=== PATIENT | female | born 1965 | race Caucasian/White ===

== ENCOUNTER 2016-07-23 07:18 | Day surgery (SDC) | payer BC, MEDICAID, OTHER ==
[~2016-07-23 07:18] MED LIST: Bupivacaine 0.5% 10 ML SDV ONE; Lactated Ringers 1,000 ML IV SCH; Lidocaine 1% 30 ML SDV ONE; Lidocaine 2% 20 ML MDV ONE; Midazolam 1 MG/ML 2 ML SDV ONE; Ondansetron 4 MG/2 ML SDV ONE; Propofol 200 MG/20 ML SDV ONE; Sodium Chloride 0.9% 10 ML Syringe FLUSH PRN; fentaNYL 100 MCG/2 ML SDV ONE
[2016-07-23] MEDS ORDERED: ceFAZolin 1 GM in Premix Bag 1 BAG IV ONE (07:30)
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
[2016-07-23] MEDS ORDERED: fentaNYL 100 MCG/2 ML SDV ONE (08:23)
[2016-07-23] MEDS ORDERED: Lidocaine 1% 30 ML SDV INJECT ONE ×4 (08:35→13:43)
[2016-07-23] MEDS ORDERED: Bupivacaine 0.5% 10 ML SDV INJECT ONE ×4 (08:35→13:43)
[2016-07-23] MEDS ORDERED: Bupivacaine 0.5% 10 ML SDV ONE (09:31)
[2016-07-23] MEDS ORDERED: Propofol 200 MG/20 ML SDV ONE (09:59)
[2016-07-23] MEDS ORDERED: Acetaminophen/oxyCODONE 325-5 MG Tab PO PRN (10:04)
--- NOTE | 2016-07-23 10:07 | PCM.OPNOTE ---
- General Post-Op/Procedure Note Date of Surgery/Procedure: 07/23/16 Operative Procedure(s): right foot bone spur excision Pre Op Diagnosis: Right foot painful bone spurs talonavicular/ navicular cuneiform joints Post-Op Diagnosis: cami Anesthesia Technique: Local, MAC Primary Surgeon: Beth Tse Anesthesia Provider: Mo Maya EBL in mLs: 5 Complications: none Condition: Good Free Text/Narrative:: Intake & Output 07/22/16 07/23/16 07/23/16 22:59 06:59 14:59 Intake Total 50 Balance 50 Pt tolerated procedure well and was transported to pacu with vss and vascular status intact to right foot upon deflation of ankle tourniquet. tt 59 mins.
[2016-07-23 11:40] VITALS: BP 138/76
[2016-07-23] MEDS ORDERED: Midazolam 1 MG/ML 2 ML SDV IV ONE (13:43)
[2016-07-23] MEDS ORDERED: Ondansetron 4 MG/2 ML SDV IV ONE (13:43)
[2016-07-23] MEDS ORDERED: Propofol 200 MG/20 ML SDV IV ONE (13:43)
[2016-07-23] MEDS ORDERED: fentaNYL 100 MCG/2 ML SDV IV ONE (13:43)
--- NOTE | 2016-07-23 17:17 | OR ---
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 PROCEDURE PERFORMED: Right foot talonavicular and navicular cuneiform bone spur excision. ANESTHESIA: Local MAC with preoperative local block of 10 mL of 1:1 mixture of 1% lidocaine plain and 0.5% Marcaine plain. TOURNIQUET TIME: 59 minutes. Pneumatic ankle tourniquet. ESTIMATED BLOOD LOSS: Minimal. SPECIMEN: None. COMPLICATIONS: None. INDICATION: Chana is a 51-year-old female, who returns for right foot/ankle pain. She rates her pain at 9/10 worse with walking or after she has been at work all day. 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 She has recently noticed a bump forming on the top of the foot that is very painful for her and will swell up. It is mostly painful when she has shoes on pressing to that area. Three views of the right foot reveals subtalar joint and calcaneocuboid arthrodesis, partial fusion. It looks like of talonavicular joint with large dorsal sprain at that area and also at the navicular cuneiform joints. No signs of fracture. The patient voiced good understanding of proposed procedure and possible complications and elects to have surgery at this time. We did discuss that we are only removing the bone spurs today, and I can further evaluate the joint when I am in there. However, it does appear she has lot of arthritis in those joints on x-rays, and I believe, we will just do the bone sprain for now to see how that works. She agrees. DESCRIPTION OF PROCEDURE: The patient was taken to the operating room, lying in the supine position. After adequate anesthesia induction as described above, the right foot was prepped and draped in usual sterile fashion. A pneumatic ankle tourniquet was inflated to 225 mmHg. Attention was then directed to the dorsal aspect of the right foot where an approximately 5 cm linear incision was made just lateral to the anterior tibial tendon insertion, prior to that the neurovascular dorsalis pedis bundle was palpated and marked out and this was avoided at the incision area. The tendon and neurovascular bundle were retracted and a linear capsulotomy was made at the talonavicular joint and naviculocuneiform joint. The capsule was reflected to expose bone spurring. There is a very large amount of bone spurring present at both of those joints, it did appear that the talonavicular had partially fused with little bit of gapping at the medial aspect, the naviculocuneiform joints did have some arthritis at the dorsal aspect, but I did resect the bone down to good cartilage. I removed all bone spurs with a rongeur and also a mallet and osteotome. I then boned the area and boned all rough edges. I then palpated to ensure that I had removed all bone spurs and also visualize this as well. I also palpated with the skin overlying the area with skin closed. There were no bony prominences remaining. The areas were then irrigated with copious amounts of sterile saline. Capsular closure and fascial closure was completed with 3-0 Vicryl. Skin closure was completed with 4-0 nylon. The areas were then dressed with Xeroform to the incision sites, fluffs, Webril, and an Shaggy wrap. I placed her into a Cam boot. She left the operating room for recovery with vital signs stable in good condition with vascular status intact as noted by immediate hyperemia upon deflation of the ankle tourniquet. Total tourniquet time was 36 minutes. She was then discharged home when she met hospital discharge requirements. [facility] /[id number] MIKEY
--- NOTE | 2016-07-27 15:31 | PCM.POSTAN ---
POST ANESTHESIA ASSESSMENT - MENTAL STATUS Mental Status: alert, oriented - VITAL SIGNS Pulse Rate: 88 SaO2: 99 Resp Rate: 18 Blood Pressure: 138/76 Temperature: 36.6 C - RESPIRATORY Respiratory Status: respiratory rate WNL, airway patent, O2 saturation stable - CARDIOVASCULAR CV Status: pulse rate WNL, blood pressure stable - GASTROINTESTINAL GI Status: no symptoms - POST OP HYDRATION Hydration Status: adequate & stable - OBSERVATIONS Free Text/Narrative:: Readyto discharge
== END 2016-07-23 11:30 | disposition home or self-care (01) ==
LOC: DL.SDS 07:18
PROVIDERS: ATTEND Podiatrist
DX: M77.51 Other enthesopathy of right foot and ankle (principal); F41.9 Anxiety disorder, unspecified; Z98.890 Other specified postprocedural states; F17.210 Nicotine dependence, cigarettes, uncomplicated; Z79.899 Other long term (current) drug therapy
CPT/HCPCS: 28120; A9270; J0690; J2250; J2405; J2704; J3010; J7120

== ENCOUNTER 2022-07-06 14:07 | Emergency (ER) | payer MEDICARE, MEDICAID ==
[2022-07-06 14:19] VITALS: BP 138/93; PULSE 136
[2022-07-06 15:16] LABS: ANION GAP 12.9 mEq/L (7-13)
== END 2022-07-06 15:36 | disposition home or self-care (01) ==
LOC: DL.ED 14:07
DX: R10.31 Right lower quadrant pain (principal); R11.0 Nausea; E66.9 Obesity, unspecified; Z68.33 Body mass index [BMI] 33.0-33.9, adult; Z72.0 Tobacco use
CPT/HCPCS: 36415; 80053; 81001; 85025; 86140; 99283; 99284